=== PATIENT | female | born 1990 | race Caucasian/White ===

== ENCOUNTER 2021-03-25 05:50 | Day surgery (SDC) | payer BC ==
[~2021-03-25] VITALS: Ht 170.2 cm; Wt 124.5 kg
[~2021-03-25 05:50] MED LIST: PRENATAL COMPL1 EACH PO
--- NOTE | 2021-03-25 09:09 | NUR ---
03/25/21 0909 Courtney Beck 0904 PATIENT ARRIVES TO PACU AWAKE BUT DROWSY. RESP EVEN AND UNLABORED, MASK AT 6 LITERS. PATIENT NEEDS TO SPIT, KLEENEX GIVEN, MASK OFF. ROOM AIR SATS >90%. PATIENT REPORTS PAIN 7/10, BUT IS VERY RELAXED, STATES IT'S NOT A PAIN, BUT A DISCOMFORT. PAIN IS TOLERABLE PER PATIENT. PATIENT RESTING WITH EYES CLOSED WHEN NOT STIMULATED.
--- NOTE | 2021-03-25 10:08 | NUR ---
PATIENT BACK TO ROOM FROM PACU. RECEIVED REPORT FROM DEREK ENGEL. PATIENT IS DROWSY BUT ANSWERES QUESTIONS. VSS. PAIN IS 6/10, DENIES NAUSEA. UMBILICAL INCISION HAS SOME RED DRAINAGE. THE OTHER 2 ABDOMINAL INCISIONS HAVE MINIMAL DRAINAGE, CASSANDRA PAD IS CLEAN AND DRY. ZABALA EMPTIED BY DEREK ENGEL WITH 250 ML OF URINE. PROVIDED PATIENT WITH WATER, SHE REQUESTS TO WAIT ON CRACKERS FOR NOW. AT BEDSIDE. CALL LIGHT WITHIN REACH.
--- NOTE | 2021-03-25 10:45 | NUR ---
PATIENT REQUESTS AND EATS CRACKERS. DENIES NAUSEA. PAIN 01/07. PAIN MEDICATION GIVEN PER SEP.
--- NOTE | 2021-03-25 11:09 | NUR ---
PATIENT RESTING IN BED. STATES PAIN IS 6/10, DENIES NAUSEA. PAIN MEDICATION GIVEN AT 1045. VSS. UMBILICAL INCISION HAS SOME POOLING RED DRAINAGE, BANDAID CHANGED. HER 2 LOWER ABDOMINAL INCISIONS HAVE MINIMAL RED DRAINAGE. CASSANDRA PAD CLEAN AND DRY. PATIENT IS DRINKING WATER. AT BEDSIDE. CALL LIGHT WITHIN REACH.
--- NOTE | 2021-03-25 11:30 | NUR ---
1130- D/C ZABALA CATH. PATIENT UP AT BEDSIDE WITH 1 RN ASSIST AND . PATIENT WAS STEADY ON FEET. STATES PAIN IS NOW "A SOLID 01/07". DENIES NAUSEA. 1135- PATEINT BACK TO BED HOLDING HER LOWER ABDOMEN. WARM BLANKET PROVIDED. 2ND PAIN PILL GIVEN PER SEP. PATIENT IS EATING A CRACKER AND DRINKING WATER. AND BEDSIDE. CALL LIGHT WITHIN REACH.
--- NOTE | 2021-03-25 12:08 | NUR ---
PATIENT RESTING IN BED. STATES PAIN IS NOW A 4-5/10. DENIES NAUSEA. VSS. PATIENT HAS A WARM BLANKET ON HER LOWER ABDOMEN. UMBILICAL INCISION HAS RED DRAINAGE AND BAND AID CHANGED. HER 2 LOWER ABDOMINAL INCISIONS HAVE MINIMAL DRAINAGE. PATIENT IS DRINKING WATER. AT BEDSIDE. CALL LIGHT WITHIN REACH.
--- NOTE | 2021-03-25 12:44 | NUR ---
1240 UMBILICAL WOUND BANDAID SATURATED AND OOZIING OUT SIDES. REMOVED BANDAID AND CLEANED SKIN WITH ALCOHOL WIPE ON SIDE WHERE BLOOD OOZED AND DRIED. 4X4 GUAZE ROLLED PLACED OVER WOUND AND TAPED WITH MEDIPORE TAPE.
--- NOTE | 2021-03-25 12:45 | NUR ---
1235: PATIENT ASSISTED OOB AND TO BATHROOM. GAIT STEADY. VOID APPROXIMATELY 50 ML OF BRIGHT YELLOW URINE. GAIT STEADY BACK TO ROOM. MESH UNDERWEAR AND PERIPAD IN PLACE. AT BEDSIDE. CALL LIGHT WITHIN REACH.
--- NOTE | 2021-03-25 13:06 | NUR ---
PATIENT RESTING COMFORTABLY IN BED. VSS. PAIN 4/10. DENIES NAUSEA. UMBILICAL INCISION IS CLEAN, DRY, AND INTACT. 2 LOWER ABDOMINAL INCISIONS HAVE MINIMAL RED DRAINAGE ON BANDAID. AT BEDSIDE. CALL LIGHT WITHIN REACH.
--- NOTE | 2021-03-25 14:10 | NUR ---
PATIENT UP TO THE RESTROOM WITH 1 RN ASSIST AND . GAIT STEADY. PATIENT TOLERATED WELL. VOIDED 125 ML. PAIN 4/10. VSS. PATIENT APPEARS COMFOTABLE. UMBILICAL INCISION AND 2 LOWER INCISIONS DRESSINGS WITH MINIMAL RED DRAINAGE. IN ROOM. PATIENT READY TO GO HOME.
--- NOTE | 2021-03-25 14:39 | NUR ---
PROVIDED PATIENT WITH DISCHARGE INSTRUCTIONS. PATIENT VERBALIZED UNDERSTANDING AND ALL QUESTIONS ANSWERED. PAIN 4/10. PROVIDED PAITENT WITH WHEELCHAIR RIDE TO FRONT OF HOSPITAL WHERE WAS WAITING WITH THE CAR.
--- NOTE | 2021-03-26 16:36 | OR ---
[facility] [address] [place], [place] [address] Signed DATE OF OPERATION: 03/25/2021 SURGEON: Tay Deras MD PREOPERATIVE DIAGNOSIS: Cervical intraepithelial neoplasia 3 of cervix with positive endocervical margins. POSTOPERATIVE DIAGNOSIS: Cervical intraepithelial neoplasia 3 of cervix with positive endocervical margins. PROCEDURE: Total laparoscopic hysterectomy, bilateral salpingectomy and cystoscopy. RECORDING STUDIO SET UP WORKER: Dr. Jackson. ANESTHESIA: General. ESTIMATED BLOOD LOSS: 25 mL. SPECIMEN: Uterus and both fallopian tubes. DRAINS: Duran to bladder. PACKING: None. FINDINGS: Normal size and shape. Cervix with IUD string in the os. Normal size and shape uterus. The anterior posterior cul-de-sacs were free of any endometriosis or adhesions. The left tube was normal in length and normal-appearing fimbriated end. No adhesions. Left ovary is normal size and shape without any evidence of endometriosis or adhesions. The right tube was normal in length and normal-appearing fimbriated end and no adhesions. Right ovary is normal size and shape without any evidence of endometriosis or adhesions. The rest of the pelvis was free of any masses or adhesions. Electronically Signed By: TAY DERAS MD 03/26/21 1636 PATIENT NAME: AUGUST GRIJALVA OPERATIVE REPORT DATE OF : 86 REPORT #: [id number] PHYSICIAN: TAY DERAS MD PCP: NO PRIMARY CARE PHYSICIAN REPORT IS CONFIDENTIAL AND NOT TO BE RELEASED WITHOUT AUTHORIZATION [facility] [address] [place], [place] [address] Signed DESCRIPTION OF PROCEDURE: The patient was brought to the operating room, placed in supine position. After adequate general anesthesia was obtained, was placed in dorsal lithotomy position, prepped and draped in usual sterile fashion. A Duran catheter was placed in the bladder and a weighted speculum was placed in the vagina. The anterior lip of the cervix was grasped with an Allis clamp and the cervix serially dilated. The VCare uterine manipulator was then carefully inserted into the uterine fundus and the balloon filled with sterile water. The IUD was removed. The Allis clamp and weighted speculum were then removed and the cervical cap slid up against the cervix. The vaginal cup was slid up against the cervical cap and tightened in place to hold the cap against the cervix. Attention was then drawn to the abdomen. A small infraumbilical skin incision was made with a scalpel after injecting the area with 0.25% Marcaine with epinephrine. The subcutaneous tissue was dissected with Metzenbaum scissors and the fascia identified and grasped with hemostats, elevated, nicked with Metzenbaum scissors and extended in transverse fashion using Metzenbaum scissors. Retention stitches of 0 Vicryl suture were placed above and below the incision. Finger dissection was used to separate the midline muscle and opened the peritoneum. An S retractor was inserted into the incision, verified entry into the abdomen and then the Megan cannula and sleeve entered the abdomen under direct visualization. The balloon of the sleeve was filled with air and the outer sleeve slid down and tightened in place. The two retention stitches were attached to the outer sleeve, trocar was removed and the laparoscope video attachment entered the abdomen under direct visualization. Carbon dioxide was used as distending medium, the above findings were noted. A small skin incision was made on the left side of the abdomen approximately 10 cm lateral to the midline and just below the level of the umbilicus, this was done by transilluminating the abdominal wall to avoid any vessels injecting the area with 0.25% Marcaine with epinephrine and making a small skin incision with a scalpel. A bladed 5-mm trocar and sleeve entered the abdomen under direct visualization. The trocar was removed and the blunt grasper inserted on the right side. In a similar fashion, skin incision was made approximately 10 cm lateral on the left side just below the level of the umbilicus after transilluminating the abdominal wall and then injecting the area with Marcaine with epinephrine. On this side, Veress needle with expandable sleeve was placed in the abdomen under direct visualization. The Veress needle removed and expandable trocar with port was placed through the expandable sleeve. It was bluntly placed through the expandable sleeve, the trocar was removed and blunt grasper inserted. The above findings were noted. The two fallopian tubes were removed by using Christina bipolar cautery forceps, cauterizing and cutting down the length of the mesosalpinx starting at the fimbriated end and transecting the fallopian tube near the proximal end of the tube and bringing out the tube through the right lateral port. Electronically Signed By: TAY DERAS MD 03/26/21 1636 PATIENT NAME: AUGUST GRIJALVA OPERATIVE REPORT DATE OF : 86 REPORT #: [id number] PHYSICIAN: TAY DERAS MD PCP: NO PRIMARY CARE PHYSICIAN REPORT IS CONFIDENTIAL AND NOT TO BE RELEASED WITHOUT AUTHORIZATION [address] [address] Signed After both tubes were removed, the utero-ovarian ligaments on each side were cauterized in several places and cut. On the left side, the round ligament was cauterized and cut and the upper broad ligament cauterized and cut. At this point, the anterior and posterior leaves of the broad ligament could be , the [place] forceps used to individually cauterize and cut just the peritoneum anterior and posteriorly. This was taken down the side of the uterus to the level of the cervical cap and around to the midline. This exposed the uterine vessels, which were cauterized in several places and cut. The paracervical tissue inside the cervical cap, which could be seen, was cauterized and cut down to the level of the vaginal wall. The right side was similarly dissected by cauterizing and cutting the utero-ovarian ligament, then cauterizing in several places round ligament and cauterizing and cutting the upper broad ligament. The anterior and posterior leaves of the broad ligament were then individually cauterized and cut down the side of the uterus to the level of the cervical cap and extending in midline to connect with the previous dissection. Uterine vessels on this side were then identified and cauterized and cut and the paracervical tissue inside the cervical cap was cauterized and cut down to the level of the vaginal wall. At this point, the Sonicision was used to cut to open the vagina in the groove of the cap in the posterior cul-de-sac. The dissection was then carried out in the groove of the cervical cap from posterior to anterior on the left side and then posterior anterior on the right side connecting anteriorly and in this way, the uterus from the rest of the pelvis. The VCare uterine manipulator was then carefully removed with the uterus attached and a sponge filled glove placed in the vagina, so that the abdomen could be re-insufflated. The pelvis was inspected and noted to have good hemostasis, so the Endostitch of delayed absorbable barbed suture was then used to close the vaginal cuff, this was started at the right uterosacral ligament and the stitch placed through the posterior vaginal cuff at the uterosacral ligament and then passing the suture through the loop at the end of the suture. This was tightened and then the anterior vaginal wall stitched from posterior to anterior. The closure was continued across to the left uterosacral ligament individually stitching the posterior edge from posterior to anterior and then, the anterior edge posterior to anterior and moving across this closing the cuff. Upon reaching the left uterosacral ligament, the stitch was taken back more superficially in the combined cuff toward the midline to lock suture in place. The remaining suture then cut off at the level of the vaginal tissue so that no stitch was protruding. The cuff was carefully examined, noted to have good closure and good hemostasis. The entire pelvis was carefully examined, noted to have good hemostasis. All instruments were removed. The gas allowed to escape and the final sleeve removed. The infraumbilical fascial incision was closed using running stitch of 0 Vicryl suture. The two retention stitches tied together for further support. The three skin incisions were closed using subcuticular stitches of 4-0 Vicryl suture. Electronically Signed By: TAY DERAS MD 03/26/21 1636 PATIENT NAME: AUGUST GRIJALVA OPERATIVE REPORT DATE OF : 86 REPORT #: [id number] PHYSICIAN: TYA DERAS MD PCP: NO PRIMARY CARE PHYSICIAN REPORT IS CONFIDENTIAL AND NOT TO BE RELEASED WITHOUT AUTHORIZATION [address] [address] Signed The Duran catheter was then removed and cystoscopy performed. The 70-degree cystoscope with sleeve was placed at the opening of the urethra and placed through the urethra into the bladder under direct visualization. Sterile water was used as distending medium. The entire bladder was inspected, the dome, both sides anterior and posteriorly and no stitches seen. No defects and no holes seen. Both ureteral orifices were identified and both showed good flow of urine into the bladder. At this point, the cystoscope was removed and a Duran catheter placed back in the bladder. The sponge filled glove was removed from the vagina. The patient tolerated the procedure well, went to recovery room in good condition. The sponge, needle, and instrument count were correct at end of procedure. Uterus and both fallopian tubes sent to Pathology for identification. MD JOSE LUIS Alvares/MODL /[id number] Copies: ~ Electronically Signed By: TAY DERAS MD 03/26/21 1636 PATIENT NAME: AUGUST GRIJALVA OPERATIVE REPORT DATE OF : 86 REPORT #: [id number] PHYSICIAN: TAY DERAS MD PCP: NO PRIMARY CARE PHYSICIAN REPORT IS CONFIDENTIAL AND NOT TO BE RELEASED WITHOUT AUTHORIZATION
--- NOTE | 2021-03-29 16:58 | PATH ---
[facility] [address], [place] [address] Signed SPECIMEN(S): A UTERUS, CERVIX, BILAT FALLOPIAN TUBES SPECIMEN SOURCE: A. UTERUS, CERVIX, BILAT FALLOPIAN TUBES CLINICAL HISTORY: DERECK III severe dysplasia FINAL PATHOLOGIC DIAGNOSIS: Uterus, cervix, and bilateral fallopian tubes, hysterectomy and bilateral salpingectomy: - Cervix: Postsurgical and reactive changes. - Endometrium: Secretory phase endometrium. - Myometrium and Serosa: No histopathologic abnormality. - Fallopian tubes: Focal paratubal cysts. - No evidence of malignancy. COMMENT: This history of HSIL, DERECK III on most recent endocervical cone biopsy from 01/07/21 (-[id number]) is noted. The entire cervix was submitted for histologic examination. Though much of the mucosa is denuded and has post-surgical site changes, no residual dysplasia is identified. NAL:cml:C2NR MICROSCOPIC EXAMINATION: Histologic sections of all submitted blocks are examined by light microscopy. These findings, together with the gross examination, support the pathologic diagnosis. A p16 immunohistochemical stain (with appropriately staining controls) was performed and senior outside sales representative sections of the cervix confirm the absence of residual high grade dysplasia or adenocarcinoma in situ. NAL:cml GROSS DESCRIPTION: The specimen, labeled "EF, A," and designated on the requisition "bilateral fallopian tubes, uterus, cervix, DERECK III," is received in formalin and consists of a uterus with attached cervix, and 2 detached fimbriated fallopian tube segments. The specimen is oriented using the peritoneal reflection and the posterior cervical barrel is inked black PATIENT NAME: AUGUST GRIJALVA PATHOLOGY DATE OF : 86 REPORT #: [id number] PHYSICIAN: DEACON MCKINNEY PCP: NO PRIMARY CARE PHYSICIAN REPORT IS CONFIDENTIAL AND NOT TO BE RELEASED WITHOUT AUTHORIZATION [facility] [address], [place] [address] Signed while the anterior cervical barrel is inked blue. The uterus with attached cervix weighs 102 g and measures 8.2 x 7.3 x 4.7 cm. The uterine serosa is garcia, smooth, glistening. The ectocervical garcia-pink, smooth to finely wrinkled, and occupies a 3.4 x 3.0 cm area. The external os is oval, patent, and 0.7 cm in diameter. The internal os is patent and the cervical stroma is grossly unremarkable. The triangular endometrial cavity measures 5.2 x 3.2 cm. The garcia to dark red endometrium is ragged, without a discrete mass/lesion, and up to 0.3 cm thick. The garcia, rubbery myometrium is up to 2.0 cm, and without a discrete mass/lesion. The 2 fimbriated fallopian tube segments are purple, undesignated, and have a patent lumen. The first is inked blue, grossly unremarkable, 5.8 cm long, and from 0.5-0.7 cm in diameter. The second is 6.2 cm long, 0.7 cm in diameter, and has multiple clear fluid-filled, smooth inner walled, paratubal cystic structures from less than 0.1 up to 0.8 cm in greatest dimension. [place] sections are submitted as follows: A1-A5 12 o'clock to 3 o'clock cervix A6-A9 3 o'clock to 6 o'clock cervix A10-A13 6 o'clock to 9 o'clock cervix A14-A17 9 o'clock to 12 o'clock cervix A18 anterior uterine wall A19 posterior uterine wall A20-A21 fallopian tube segments including fimbria entirely AI (under the direct supervision of a pathologist) The Gross Description was prepared using a voice recognition system. The report was reviewed for accuracy; however, sound-alike word errors, addition and/or deletions may occur. If there is any question about this report, please contact Client Services. ADDITIONAL NOTES: Immunohistochemical and/or in situ hybridization studies were performed on this case with the appropriate positive controls that react as expected. This test was developed and its performance characteristics determined by [facility]. It has not been cleared or approved by the U.S. Food and Drug Administration. The FDA has determined that such clearance or approval is not necessary. This test is used for clinical purposes. It should not be regarded as investigational or for research. [facility] is certified under the Clinical Laboratory Improvement PATIENT NAME: AUGUST GRIJALVA PATHOLOGY DATE OF : 86 REPORT #: [id number] PHYSICIAN: DEACON PATHOLOGY PCP: NO PRIMARY CARE PHYSICIAN REPORT IS CONFIDENTIAL AND NOT TO BE RELEASED WITHOUT AUTHORIZATION [address] [address] Signed Amendments of 1988 (CLIA) as qualified to perform high complexity clinical laboratory testing. This assay has not been validated for specimens that have been decalcified. PERFORMING LABORATORY: The technical component was performed by [facility], [address] [place] [id number] (Ceo And Founder: Christiane Posada MD; CLIA# [id number]). Professional interpretation was performed by [facility], [facility], [address] [place] [address] (CLIA# [id number]). Diagnostician: Mary Burr MD Pathologist Electronically Signed 03/29/2021 Copies: ~ PATIENT NAME: AUGUST GRIJALVA PATHOLOGY DATE OF : 86 REPORT #: [id number] PHYSICIAN: DEACON PATHOLOGY PCP: NO PRIMARY CARE PHYSICIAN REPORT IS CONFIDENTIAL AND NOT TO BE RELEASED WITHOUT AUTHORIZATION
== END 2021-03-25 14:36 | disposition home or self-care (01) ==
LOC: OPS 05:50 → DS 05:50 → OPS 06:45 → DS 06:45 → OPS 14:36
PROVIDERS: ATTEND General Practice
PROC: 0UT94ZZ Resection of Uterus, Percutaneous Endoscopic Approach (ICD-10-PCS; principal; 2021-03-25 06:45)
PROC: 0UT74ZZ Resection of Bilateral Fallopian Tubes, Percutaneous Endoscopic Approach (ICD-10-PCS; 2021-03-25 06:45)
DX: D06.9 Carcinoma in situ of cervix, unspecified (principal); N83.8 Other noninflammatory disorders of ovary, fallopian tube and broad ligament; E66.9 Obesity, unspecified; F17.210 Nicotine dependence, cigarettes, uncomplicated; J30.2 Other seasonal allergic rhinitis; F32.9 Major depressive disorder, single episode, unspecified; F41.0 Panic disorder [episodic paroxysmal anxiety]; F12.90 Cannabis use, unspecified, uncomplicated; Z68.41 Body mass index [BMI] 40.0-44.9, adult
CPT/HCPCS: 00840; J0131; J0330; J0690; J1100; J1644; J1790; J1885; J2001; J2250; J2300; J2405; J2704; J3010; J3475; J7121